=== PATIENT | female | born 1950 ===

== ENCOUNTER 2024-06-14 11:03 | Emergency (ER) | payer SELFPAY ==
[2024-06-14 11:04] VITALS: BP 200/102; PULSE 72; RESP 16; TEMP 36.8; O2SAT 99; BMI 29.2
--- NOTE | 2024-06-14 11:22 | ECG_ITS ---
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 Measurements Intervals [place] Rate: 79 P: 89 DE: 148 QRS: -24 QRSD: 97 T: 61 QT: 376 QTc: 432 Interpretive Statements SINUS RHYTHM INCOMPLETE RIGHT BUNDLE BRANCH BLOCK [90+ ms QRS DURATION, TERMINAL R IN V1/V2, 40+ ms S IN I/aVL/V4/V5/V6] SEPTAL MYOCARDIAL INFARCTION , OF INDETERMINATE AGE [40+ ms Q WAVE IN V1/V2] No previous ECG available for comparison Electronically Signed On 06-15-2024 07:42:03 CDT by Tremayne Wilkerson M.D. [id number]
--- NOTE | 2024-06-14 11:25 | XRR_ITS ---
PROCEDURE INFORMATION: Exam: XR Chest Exam date and time: 06/14/2024 11:53 AM Age: 73 years old Clinical indication: Shortness of breath; Additional info: Confusion TECHNIQUE: Imaging protocol: Radiologic exam of the chest. Views: 1 view. COMPARISON: No relevant prior studies available. FINDINGS: Lungs: No focal consolidation. Calcified granuloma in the left mid lung. Pleural spaces: No sizable pleural effusion. No pneumothorax. Heart/Mediastinum: Unremarkable cardiomediastinal silhouette. Aortic knob calcifications. Aorta is significantly tortuous. Bones/joints: The spine demonstrates mild degenerative changes at multiple levels. XR/XR chest 1V portable [id number] IMPRESSION: 1. No acute findings. 2. Extensive aortic tortuosity.
--- NOTE | 2024-06-14 11:25 | CT_ITS ---
WS: [id number] CT HEAD TECHNIQUE: Noncontrast CT of the head obtained from the skullbase to the vertex. CLINICAL INFORMATION: altered mental status COMPARISON: None. DLP: 577.[address] scans at [facility] use at least one of these dose optimization techniques: automated e xposure control; mA and/or kV adjustment per patient size (includes targeted exams where dose is matc hed to clinical indication); or iterative reconstruction. FINDINGS: No evidence of intracranial hemorrhage or mass effect. Ventricular system and basal cisterns are jacinto nt. Mild small vessel changes with mild parenchymal volume loss. Vascular calcification. No extra-axi al fluid collections. No evidence of mass or mass effect. Vascular calcification. Paranasal sinuses and mastoid air cells are well aerated. .Normal visualized soft tissues. CT/CT head wo con* [id number] IMPRESSION: 1. No evidence of intracranial hemorrhage or mass effect. 2. No acute intracranial findings.
[2024-06-14 11:54] LABS: Bilirubin Urine Negative (Negative); Blood Urine Negative (Negative); Glucose Urine UA 3+ (Normal); Ketones Urine Trace (Negative); Leukocyte Esterase Urine Negative (Negative); Nitrate Urine Negative (Negative); Protein Urine Trace (Negative); Urine Appearance Clear (CLEAR); Urine Color Yellow (Yellow)
[2024-06-14 11:58] LABS: Bacteria Urine None Seen /hpf; RBC Urine 0-2 /hpf (0-2); Squamous Epithelial Cell Urine 0-5 /hpf (0-5); WBC Urine 0-5 /hpf (0-5)
[2024-06-14 12:00] LABS: Amphetamines Screen Urine Positive (Negative); Barbiturates Screen Urine Negative (Negative); Benzodiazepines Screen Urine Positive (Negative); Cocaine Screen Urine Negative (Negative); Opiate Screen Urine Negative (Negative); PCP Screen Urine Negative (Negative); THC Screen Urine Positive (Negative)
[2024-06-14 12:02] LABS: Add Urine Culture? No
[2024-06-14 12:09] VITALS: BP 153/78; PULSE 73; RESP 16; O2SAT 100
--- NOTE | 2024-06-14 12:25 | W.ED.PSYCHS ---
HPI - Psych General: Chief Complaint: Psychiatric Symptoms Stated Complaint: mhe Time Seen by Provider: 06/14/24 11:04 History of Present Illness: 73-year-old female with unknown past medical history presents to the emergency room by ambulance from a clinic with altered mental status/confusion. From what we can gather she says that she left [place] yesterday without her phone or ID. She was going to [place]. Apparently she had told the clinic there which she had never been to the she did not bring her psychiatric medications. She has no focal motor deficits. She has an odd affect. Related Data Home Medications Medication Instructions Recorded Confirmed albuterol sulfate 90 mcg/actuation 2 puff inhalation Q6H PRN 06/14/24 06/14/24 aerosol inhaler Shortness Of Breath alprazolam 0.5 mg tablet 0.5 mg PO QID PRN as directed 06/14/24 06/14/24 buspirone 15 mg tablet 15 mg PO BID 06/14/24 06/14/24 carbidopa 10 mg-levodopa 100 mg 1 tab PO TID 06/14/24 06/14/24 tablet dextroamphetamine-amphetamine 10 10 mg PO QAM 06/14/24 06/14/24 mg tablet donepezil 10 mg tablet 10 mg PO BID 06/14/24 06/14/24 duloxetine 30 mg capsule,delayed 30 mg PO QPM 06/14/24 06/14/24 release duloxetine 60 mg capsule,delayed 60 mg PO DAILY 06/14/24 06/14/24 release gabapentin 300 mg capsule 300 mg PO TID 06/14/24 06/14/24 galantamine 8 mg tablet 8 mg PO DAILY 06/14/24 06/14/24 hydroxyzine HCl 50 mg tablet 50 mg PO QPM 06/14/24 06/14/24 levothyroxine 25 mcg tablet 25 mcg PO DAILY 06/14/24 06/14/24 lisinopril 20 mg tablet 20 mg PO QPM 06/14/24 06/14/24 metformin 500 mg tablet 500 mg PO DAILY 06/14/24 06/14/24 mupirocin 2 % topical ointment 1 applic topical PRN PRN skin 06/14/24 06/14/24 irritaion ondansetron HCl 8 mg tablet 8 mg PO Q8H PRN Nausea And Vomiting 06/14/24 06/14/24 quetiapine 25 mg tablet See Rx Instructions .Route .COMPLEX 06/14/24 06/14/24 suvorexant 20 mg tablet (Belsomra) 20 mg PO QPM 06/14/24 06/14/24 tramadol 50 mg tablet 50 mg PO BID PRN Pain 06/14/24 06/14/24 Allergies Allergy/AdvReac Type Severity Reaction Status Date / Time mold Allergy Unknown Verified 06/14/24 11:22 Review of Systems General: Reports: ROS unobtainable due to medical condition Physical Exam Narrative: EXAM NARRATIVE: General: Alert, no acute distress. Skin: Warm, dry. Head: Normocephalic, atraumatic. Neck: Supple, trachea midline. Eye: Extraocular movements are intact. Ears, nose, mouth and throat: mucosa moist. Cardiovascular: Regular, Normal peripheral perfusion. Respiratory: Lungs are clear to auscultation, respirations are non-labored, breath sounds are equal, Symmetrical chest wall expansion. Gastrointestinal: Soft, Nontender, Non distended, Normal bowel sounds. Musculoskeletal: Normal ROM, no deformity. Neurological: Alert but not oriented, No focal neurological deficit observed. Psychiatric: Patient seems confused/demented. Course Vital Signs: Vital signs: Vital Signs Temperature 98.3 F 06/14/24 11:04 Pulse Rate 84 06/14/24 17:21 Respiratory Rate 16 06/14/24 17:21 Blood Pressure 146/69 06/14/24 17:21 Pulse Oximetry 95 06/14/24 17:21 Oxygen Delivery Me thod Room Air 06/14/24 12:09 MDM - Psych Medical Decision Making Medical decision making: Differential diagnosis for a geriatric patient with worsening dementia/behavioral problems including but not limited to and based on the above HPI, review of systems and physical exam: Concerns for infection such as UTI or pneumonia. Alcohol intoxication. Cardiac issues or other medical problems to be ruled out prior to a geriatric/psychiatric admission Orders placed to evaluate differential diagnosis based on the above differential, HPI and physical exam Lab work, chest X-ray and ekg ordered to evaluate the pathologies and to clear the patient medically prior CT head: No acute intracranial process. no intracranial hemorrhage, no evidence of infarct. no evidence of acute fracture.This was reviewed and interpreted by myself the ER physician. EKG: Normal sinus rhythm, No ST-T changes, no ectopy, normal MS & QRS intervals, This was reviewed and interpreted by myself the ER physician at 1158 Lab Review: Laboratory results were reviewed and interpreted by myself the emergency room physician. Lab review: - EKG shows no ischemic changes. - Blood alcohol level is negative, as well as salicylate and Tylenol. - Drug screen is positive for amphetamines benzodiazepines and marijuana - No signs of infection, urinalysis clear and white count is not elevated - No anemia. - BUN and creatinine are within normal limits. Consultation: I spoke with Dr. Hart with psychiatry here he feels that given the patient's condition she needs to be transferred to a geriatric psychiatric facility. Assessment and plan: Dementia Psychosis Confusion ?96-hour hold was placed on the patient. She still seems agitated confused. She will not or cannot get a hold of anyone so we can find out what her baseline is and maybe send her home. ?Patient seems to have improved considerably. My main concern about her leaving was that she is an hour and half away from her car and IRI for weight from home. She is agreed to contact a friend and the friend will come get her and take her to her car. I am comfortable with her leaving as long as she is being supervised Lab Data 06/14/24 12:28 06/14/24 12:28 Radiology Impressions Chest X-Ray 06/14/24 11:25 IMPRESSION: 1. No acute findings. 2. Extensive aortic tortuosity. Head CT 06/14/24 11:25 IMPRESSION: 1. No evidence of intracranial hemorrhage or mass effect. 2. No acute intracranial findings. Laboratory Results WBC 7.51 10^3/uL (3.29-11.43) 06/14/24 12:28 RBC 4.52 10^6/uL (3.85-5.65) 06/14/24 12: Hgb 12.80 g/dL (11.27-16.99) 06/14/24 12: Hct 39.2 % (36-47) 06/14/24 12:28 MCV 86.7 fl (85-98) 06/14/24 12: MCH 28.3 pg (27-33) 06/14/24 12: MCHC 32.7 g/dL (30-55) 06/14/24 12: RDW 13.0 % (12.1-15.1) 06/14/24 12:28 Plt Count 327 10^3/cmm (157-399) 06/14/24 12:28 MPV 9.3 fL (7.4-10.4) 06/14/24 12: Neut % (Auto) 70.5 % 06/14/24 12: Lymph % (Auto) 20.4 % 06/14/24 12:28 [place] % (Auto) 7.9 % 06/14/24 12:28 Eos % (Auto) 0.5 % 06/14/24 12:28 Baso % (Auto) 0.4 % 06/14/24 12: Neut # (Auto) 5.30 10^3/uL (1.8-7.7) 06/14/24 12: Lymph # (Auto) 1.5 10^3/uL (0.8-4.8) 06/14/24 12:28 [place] # (Auto) 0.6 10^3/uL (0.2-0.9) 06/14/24 12:28 Eos # (Auto) 0.0 10^3/uL (0.0-0.8) 06/14/24 12: Baso # (Auto) 0.0 10^3/uL (0.0-0.1) 06/14/24 12:28 Nucleated RBC % (auto) 0 % 06/14/24 12: Nucleated RBCs # 0.0 /100WBC 06/14/24 12:28 Sodium 134 mmol/L (136-145) L 06/14/24 12:28 Potassium 4.0 mmol/L (3.5-5.1) 06/14/24 12:28 Chloride 96 mmol/L (98-107) L 06/14/24 12:28 Carbon Dioxide 28 mmol/L (22-29) 06/14/24 12:28 Anion Gap 14.0 (5-19) 06/14/24 12:28 BUN 19 mg/dL (8-23) 06/14/24 12:28 Creatinine 0.9 mg/dL (0.5-0.9) 06/14/24 12:28 GFR Calculation Not Reportable 06/14/24 12:28 Glucose 205 mg/dL (65-115) H 06/14/24 12:28 Calculated Osmolality 286 mOsm/kg (285-295) 06/14/24 12:28 Calcium 8.8 mg/dL (8.5-10.5) 06/14/24 12:28 Total Bilirubin 0.5 mg/dL (0.15-1.2) 06/14/24 12:28 AST 29 U/L (0-32) 06/14/24 12:28 ALT 25 U/L (0-33) 06/14/24 12:28 Alkaline Phosphatase 92 U/L (35-105) 06/14/24 12:28 Total Protein 6.3 g/dL (6.6-8.7) L 06/14/24 12: Albumin 3.9 g/dL (3.5-5.2) 06/14/24 12: Globulin 2.4 g/dL (1.3-4.6) 06/14/24 12: TSH 4.20 uIU/mL (0.27-4.20) 06/14/24 12:28 Urine Color Yellow (Yellow) 06/14/24 11:40 Urine Appearance Clear (CLEAR) 06/14/24 11:40 Urine pH 6.0 (5-7) 06/14/24 11:40 Ur Specific [place] 1.040 (1.005-1.030) H 06/14/24 11:40 Urine Protein Trace (Negative) A 06/14/24 11:40 Urine Glucose (UA) 3+ (Normal) H 06/14/24 11:40 Urine Ketones Trace (Negative) 06/14/24 11:40 Urine Blood Negative (Negative) 06/14/24 11:40 Urine Nitrate Negative (Negative) 06/14/24 11:40 Urine Bilirubin Negative (Negative) 06/14/24 11:40 Urine Urobilinogen 1.0 mg/dL (Negative) 06/14/24 11:40 Ur Leukocyte Esterase Negative (Negative) 06/14/24 11:40 Urine RBC 0-2 /hpf (0-2) 06/14/24 11:40 Urine WBC 0-5 /hpf (0-5) 06/14/24 11:40 Ur Squamous Epith Cells 0-5 /hpf (0-5) 06/14/24 11:40 Amorphous Sediment Not Reportable 06/14/24 11:40 Urine Bacteria None seen /hpf (NONE) 06/14/24 11:40 Hyaline Casts 3.30 /lpf 06/14/24 11:40 Salicylates < 0.3 mg/dL (3-10) L 06/14/24 12:28 Urine Opiates Screen Negative ng/mL (Negative) 06/14/24 11:40 Acetaminophen < 5.0 ug/mL (10-30) L 06/14/24 12:28 Ur Barbiturates Screen Negative ng/mL (Negative) 06/14/24 11:40 Ur Phencyclidine Scrn Negative ng/mL (Negative) 06/14/24 11:40 Ur Amphetamines Screen Positive ng/mL (Negative) H 06/14/24 11:40 U Benzodiazepines Scrn Positive ng/mL (Negative) H 06/14/24 11:40 Urine Cocaine Screen Negative ng/mL (Negative) 06/14/24 11:40 U Marijuana (THC) Screen Positive ng/mL (Negative) H 06/14/24 11:40 Ethyl Alcohol < 10 mg/dL (0-10) 06/14/24 12:28 SARS-CoV-2 Ag (Rapid) negative (Negative) 06/14/24 15:40 All radiology interpretation(s) finalized by discharge Discharge Plan Discharge Patient Disposition: Home Clinical Impression: Acute psychosis Condition: Stable Prescriptions: No Action quetiapine 25 mg tablet See Rx Instructions .ROUTE .COMPLEX Rx Instructions: TAKE 1 TABLET BY MOUTH ONCE DAILY AT 2 PM metformin 500 mg tablet 500 mg PO DAILY ondansetron HCl 8 mg tablet 8 mg PO Q8H PRN (Reason: Nausea And Vomiting) donepezil 10 mg tablet 10 mg PO BID lisinopril 20 mg tablet 20 mg PO QPM dextroamphetamine-amphetamine 10 mg tablet 10 mg PO QAM hydroxyzine HCl 50 mg tablet 50 mg PO QPM tramadol 50 mg tablet 50 mg PO BID PRN (Reason: Pain) levothyroxine 25 mcg tablet 25 mcg PO DAILY alprazolam 0.5 mg tablet 0.5 mg PO QID PRN (Reason: as directed ) carbidopa-levodopa 10-100 mg tablet 1 tab PO TID mupirocin 2 % ointment 1 applic TOPICAL PRN PRN (Reason: skin irritaion ) albuterol sulfate 90 mcg/actuation HFA aerosol inhaler 2 puff INHALATION Q6H PRN (Reason: Shortness Of Breath) galantamine 8 mg tablet 8 mg PO DAILY buspirone 15 mg tablet 15 mg PO BID duloxetine 30 mg capsule,delayed release(DR/EC) 30 mg PO QPM duloxetine 60 mg capsule,delayed release(DR/EC) 60 mg PO DAILY Belsomra 20 mg tablet 20 mg PO QPM gabapentin 300 mg capsule 300 mg PO TID Discharge Orders: Discharge ED (Routine); Ordered 06/14/24 Ordered By: Yanet Kelsey Discharge Diet: Usual diet Discharge Activity: Increase activity as tolerated Patient Instructions: Opioid Safety, Pain Management Activity Restrictions/Additional Instructions: Thank you for choosing [facility] for your healthcare needs today. Please realize this is an emergency room and that we are providing you with a medical screening exam and this may not be complete and all inclusive of all the testing and or work up that you may need to determine your ailment or severity of your illness. You have been screened and evaluated and felt safe for discharge. Health conditions do change or evolve sometimes and as such it is important that you follow up with your Primary Doctor to be re checked, 3-5 days is a general good time frame for follow up. You are always welcome to return to the ED for re assessment if your symptoms are worsening or you have new concerns Coding Level of Care Code ED Office Administrative Assistant for Catalino Almaraz
[2024-06-14] MEDS: LORazepam 2 mg/mL INJ 1 mL 1 MG IM (12:34)
[2024-06-14 12:35] LABS: Basophils % 0.4 %; Eosinophils % 0.5 %; Hematocrit 39.2 % (36-47); Lymphocytes # 1.5 10^3/uL (0.8-4.8); Lymphocytes % 20.4 %; Mean Corpuscular HGB Conc 32.7 g/dL (30-55); Mean Corpuscular Hemoglobin 28.3 pg (27-33); Mean Corpuscular Volume 86.7 fl (85-98); Mean Platelet Volume 9.3 fL (7.4-10.4); Monocytes # 0.6 10^3/uL (0.2-0.9); Monocytes % 7.9 %; Neutrophils % 70.5 %; Nucleated Red Blood Cells % 0 %; Platelet Count 327 10^3/cmm (157-399); Red Blood Count 4.52 10^6/uL (3.85-5.65); White Blood Count 7.51 10^3/uL (3.29-11.43)
[2024-06-14 13:00] LABS: Acetaminophen < 5.0 ug/mL (10-30); Alanine Aminotransferase 25 U/L (0-33); Albumin Level 3.9 g/dL (3.5-5.2); Alcohol Level < 10 mg/dL (0-10); Alkaline Phosphatase 92 U/L (35-105); Aspartate Amino Transferase 29 U/L (0-32); Blood Urea Nitrogen 19 mg/dL (8-23); Calcium 8.8 mg/dL (8.5-10.5); Carbon Dioxide 28 mmol/L (22-29); Chloride 96 mmol/L (98-107); Creatinine Clr Calc Pharmacy 54.1441; Globulin 2.4 g/dL (1.3-4.6); Glucose 205 mg/dL (65-115); Osmolality Calculated 286 mOsm/kg (285-295); Salicylate < 0.3 mg/dL (3-10); Sodium 134 mmol/L (136-145); Total Bilirubin 0.5 mg/dL (0.15-1.2); Total Protein 6.3 g/dL (6.6-8.7)
--- NOTE | 2024-06-14 13:01 | PC.PHAR ---
Patient states she has medications and uses [facility] . She also states she thinks it is to many medications and has slowly been weaning herself off of them .. Last taken any medications she states was 2 days ago .
--- NOTE | 2024-06-14 14:02 | PC.NURSE ---
attempted to contact clinic that patient came from. Benita NICHOLAS at clinic stated that PT has never been seen at their clinic and she is unaware of PT's baseline or HX. She did state that patient told her she was off of several psychiatric medications.
[2024-06-14 16:13] LABS: SARS Covid-2 Antigen negative (Negative)
--- NOTE | 2024-06-14 17:01 | PC.NURSE ---
THIS RN TO ROOM WITH SECURITY TO READ 96 HOUR RIGHTS. PT VERBALIZED SHE WAS UPSET WITH THIS DECISION, THEN STATES I GUESS IT MAKES SENSE. EDUCATION PROVIDED ON HOLD, ALL QUESTIONS WERE ANSWERED AND SUPPORT VOICED.
[2024-06-14 17:21] VITALS: BP 146/69; PULSE 84; RESP 16; O2SAT 95
--- NOTE | 2024-06-14 17:53 | PC.NURSE ---
NURSE ATTEMPTED TO TALK TO PT ABOUT WHAT HER PLAN WAS AND WHAT SHE WAS WANTING US TO DO TO HELP HER. PT STATES, YOU BETTER NOT CALL MY KIDS! PT STATED SHE WANTED BEDTIME MEDICATIONS AND TO SLEEP. PT ALSO STATED, THIS IS THE ONLY FOOD I HAVE HAD IN 3 DAYS. SITTER WAS OUTSIDE ROOM AND PRESENT FOR CONVERSATION WITH NURSE WELL
[2024-06-14] MEDS: ondansetron 4 MG Tablet PO (18:37)
--- NOTE | 2024-06-14 18:38 | PC.NURSE ---
PT WAS ABLE TO CALL HER DAUGHTER AND TALK TO HER. NURSE ALSO TALKED TO DAUGHTER. DAUGHTER IS GOING TO TRY AND GET MICHAEL TO COME PICK PT UP [place].
[2024-06-14 20:16] VITALS: BP 170/82; PULSE 87; RESP 16; O2SAT 98
== END 2024-06-14 20:18 | disposition home or self-care (01) ==
PROVIDERS: Emergency Provider Emergency Medicine
DX: F23 Brief psychotic disorder (principal); Z79.84 Long term (current) use of oral hypoglycemic drugs; Z11.52 Encounter for screening for COVID-19
CPT/HCPCS: 36415; 70450; 71045; 80053; 80306; 80307; 81001; 84443; 85025; 87426; 93005; 96372; 99285; J2060; Q0162